=== PATIENT | male | born 1955 | race Caucasian/White ===

== ENCOUNTER 2019-08-20 10:18 | Outpatient (CLI) | payer OTHER, SELFPAY ==
--- NOTE | 2019-08-20 | US_ITS ---
WS: [id number] RIGHT LOWER EXTREMITY VENOUS ULTRASOUND EXAMINATION CLINICAL INFORMATION: RIGHT THIGH PAIN COMPARISON: May 22, 2018 FINDINGS: Persistent subtotal thrombus seen in the peroneal trunk. Remainder of the right lower extremity vesse ls are patent. Right common femoral vein, femoral vein, and popliteal veins are patent. Posterior tibial vein is pat ent. US/ROR venous duplex LE RT IMPRESSION: Persistent subtotal thrombus seen in the peroneal trunk.
== END 2019-08-20 10:19 | disposition home or self-care (01) ==
LOC: RADOUTREAD 12:58
PROVIDERS: Family Provider Family Medicine; Visit Provider Family Medicine
DX: Z76.89 Persons encountering health services in other specified circumstances (principal)

== ENCOUNTER 2019-09-24 06:00 | Outpatient (RCR) | payer OTHER, SELFPAY | END 2019-10-22 23:59 | disposition home or self-care (01) | LOC: SPT 06:00 | PROVIDERS: Family Provider Family Medicine; PCP Family Medicine; Referring Provider Orthopaedic Surgery; Visit Provider Orthopaedic Surgery | DX: M25.551 Pain in right hip (principal) | CPT/HCPCS: 97110; 97161 ==

== ENCOUNTER 2019-09-25 06:00 | Outpatient (RCR) | payer OTHER, SELFPAY | END 2019-10-22 23:59 | disposition home or self-care (01) | LOC: SPT 06:00 | PROVIDERS: Family Provider Family Medicine; PCP Family Medicine; Referring Provider Family Medicine; Visit Provider Family Medicine | DX: M25.551 Pain in right hip (principal) | CPT/HCPCS: 97110; 97161 ==

== ENCOUNTER 2019-09-25 12:51 | Outpatient (CLI) | payer OTHER, SELFPAY ==
--- NOTE | 2019-09-25 | XR_ITS ---
WS: [id number] HIP WITH PELVIS RIGHT TECHNIQUE: 3 views of the right hip with pelvis CLINICAL INFORMATION: RIGHT HIP PAIN COMPARISON: None. FINDINGS: Moderate degenerative arthritis right hip. Joint space narrowing. No acute fractures. Normal visualiz ed right pubic rami. XR/XR hip RT 2-3V wo/w pel* [id number] IMPRESSION: Moderate degenerative arthritis right hip. No acute fractures
== END 2019-09-25 12:52 | disposition home or self-care (01) ==
LOC: RADOUTREAD 09-26 07:45
PROVIDERS: Family Provider Family Medicine; PCP Family Medicine; Visit Provider Family Medicine
DX: Z01.89 Encounter for other specified special examinations (principal)

== ENCOUNTER 2019-09-26 09:35 | Day surgery (SDC) | payer OTHER, SELFPAY ==
--- NOTE | 2019-09-26 09:55 | ANES.PREANE2 ---
Pre-Anesthetic Assessment Pre-Anesthetic Assessment: Height/Weight: Height 1.8 m Preop Diagnosis: Colon CA screening Proposed Procedure: Operation Date: 09/26/19 11:00 Proposed Procedures p Colonoscopy(Not Applicable) - Eliezer St MD Last Intake: 20:00 Exam: Pre-Anes Outpt Exam: alert, oriented x 3, clear to auscultation bilaterally and regular rate & rhythm Airway: Submandibular: WNL Cervical ROM: WNL MP: 2 CV/HEM: CV/HEM: HTN Comments: rx'd x 10y stress test ' negative 2 blocks/2FOS without angina/TEJEDA : Comments: BPH, nocturia Metabolic: Metabolic: Hyperlipidemia Anesthetic Plan: ASA status: 2 Anesthesia: MAC PFSH Anesthesia PFSH: Social History Smoking and tobacco status: never smoked Alcohol intake: current Alcohol intake frequency: 0-2 Drinks per Day Alcohol type: wine Marital status: Current occupational status: employed History of recent travel: No Data Anesthesia Cardiac Studies: No Data to Display
[2019-09-26 10:22] VITALS: BMI 37.0
[2019-09-26 10:27] VITALS: BP 118/86; PULSE 71; RESP 18; TEMP 36.6; O2SAT 95
[2019-09-26] MEDS: sodium chloride 0.9% 1,000 ML 30 ML (10:37)
--- NOTE | 2019-09-26 11:26 | W.PM.OPSUD ---
Surgery/Procedure H&P Update DATE OF PROCEDURE: September 26, 2019 DATE H&P PERFORMED: 09/10/19 H&P UPDATE INFORMATION: I have reviewed H&P completed within last 30 days, I have examined patient prior to procedure and No changes to prior documentation PREOP DIAGNOSIS: Screening PLANNED PROCEDURE: Operation Date: 09/26/19 11:00 Proposed Procedures p Colonoscopy(Not Applicable) - Eliezer St MD
[2019-09-26 11:58] VITALS: BP 86/55; PULSE 66; RESP 16; TEMP 36.8; O2SAT 93
[2019-09-26 12:01] VITALS: BP 93/56; PULSE 63; RESP 16; O2SAT 96
--- NOTE | 2019-09-26 12:02 | ANE.PACU2 ---
 Inpatient post-anesthesia follow up: Airway intact: Yes Vital signs: Temperature 98.2 F Pulse Rate 63 Respiratory Rate 16 Blood Pressure 93/56 Pulse Oximetry 96 Oxygen Delivery Me thod Room Air Oxygen Flow Rate 2 Fraction of Inspir ed Oxygen Hydration adequate: Yes Nausea and vomiting: No Pain level: 1 Mental status: Baseline
[2019-09-26 12:07] VITALS: BP 93/56; PULSE 62; RESP 16; O2SAT 97
== END 2019-09-26 12:20 | disposition home or self-care (01) ==
PROVIDERS: Family Provider Family Medicine; PCP Family Medicine; Visit Provider Surgery
PROC: 0DJD8ZZ Inspection of Lower Intestinal Tract, Via Natural or Artificial Opening Endoscopic (ICD-10-PCS; CPT 45378; principal; 2019-09-26 11:00)
DX: Z12.11 Encounter for screening for malignant neoplasm of colon (principal); K57.30 Diverticulosis of large intestine without perforation or abscess without bleeding; K64.8 Other hemorrhoids; N40.0 Benign prostatic hyperplasia without lower urinary tract symptoms; Z86.718 Personal history of other venous thrombosis and embolism; E78.5 Hyperlipidemia, unspecified; I10 Essential (primary) hypertension; M19.90 Unspecified osteoarthritis, unspecified site; G47.30 Sleep apnea, unspecified
CPT/HCPCS: 12345; 45378; J2704; J7030

== ENCOUNTER 2019-10-23 06:00 | Outpatient (RCR) | payer OTHER, SELFPAY | END 2019-11-11 23:00 | disposition home or self-care (01) | LOC: SPT 06:00 | PROVIDERS: Family Provider Family Medicine; PCP Family Medicine; Referring Provider Orthopaedic Surgery; Visit Provider Orthopaedic Surgery | DX: M25.551 Pain in right hip (principal) | CPT/HCPCS: 97110 ==

== ENCOUNTER 2019-10-23 06:00 | Outpatient (RCR) | payer OTHER, SELFPAY | END 2019-11-21 23:59 | disposition home or self-care (01) | LOC: SPT 06:00 | PROVIDERS: Family Provider Family Medicine; PCP Family Medicine; Referring Provider Family Medicine; Visit Provider Family Medicine | DX: M25.551 Pain in right hip (principal) | CPT/HCPCS: 97035; 97110 ==

== ENCOUNTER 2019-11-22 06:00 | Outpatient (RCR) | payer OTHER, SELFPAY | END 2019-12-22 23:59 | disposition home or self-care (01) | LOC: SPT 06:00 | PROVIDERS: PCP Family Medicine; Referring Provider Family Medicine; Visit Provider Family Medicine | DX: M25.551 Pain in right hip (principal) | CPT/HCPCS: 97035; 97110 ==

== ENCOUNTER 2019-12-23 08:38 | Outpatient (CLI) | payer OTHER, SELFPAY ==
--- NOTE | 2019-12-23 08:42 | MR_ITS ---
WS: [id number] MRI RIGHT HIP with CONTRAST. COMPARISON: Hip radiograph 09/25/2019 Multiplanar, multisequence imaging is performed without contrast. Abnormal appearance involving the RIGHT hip and the adjacent soft tissues. There is increased T2 sign al in the RIGHT femoral neck and head and extending into the proximal diaphysis. Abnormal signal exte nds over length of 10 cm and involves a large portion of the femoral neck and head. Abnormal contour of the femoral head. There is flattening with loss of cartilage and loss of the normal joint space. S ome increased T2 signal involving the superior acetabulum on the RIGHT. There is increased T2 signal within the muscles and soft tissues surrounding the hip and a moderate joint effusion with mild thick ening of the joint capsule. On the T1 sequences there is abnormal marrow signal. No fracture is ident ified. Abnormal signal involving the superior femoral head osteonecrosis. No bone fragment. There is abnormal signal in the parasymphyseal portion of the RIGHT inferior pubic rami. Notified Rio Al MD at 12/23/2019 10:40 AM. MR/MR hip RT wo con* [id number] IMPRESSION: 1. Significant abnormal appearance of the bones and soft tissues of the RIGHT hip with increase fluid in the joint. Differential includes infection with oste omyelitis and septic joint. 2. Additional abnormal signal in the parasymphyseal RIGHT inferior pubic rami. 3. Patient is at risk for pathological fracture due to the extensive marrow ab normalities in the RIGHT hip. Joint aspiration and additional evaluation for po ssible metastatic disease should be considered. 4. Osteonecrosis RIGHT hip.
== END 2019-12-23 08:39 | disposition home or self-care (01) ==
LOC: RADWPI 08:40
PROVIDERS: Family Provider Family Medicine; PCP Family Medicine; Visit Provider Family Medicine
DX: M25.551 Pain in right hip (principal); M87.9 Osteonecrosis, unspecified
CPT/HCPCS: 73721

== ENCOUNTER 2020-02-20 10:20 | Outpatient (CLI) | payer OTHER, SELFPAY ==
--- NOTE | 2020-02-20 10:35 | USCV_ITS ---
Kieran Stephen Age: 64 Gender: M : 1955 Exam Date: 02/20/2020 10:49 Ordering Phys: Rio Al MD Technologist: Simone Mcgrath Exam Location: [facility] [place] Indication: CHEST PAIN BP: / HR: 54 Rhythm: Sinus Technical Quality: Fair MEASUREMENTS (Male / Female) Normal Values 2D ECHO LV Diastolic Diameter PLAX 4.9 cm 4.2 - 5.9 / 3.9 - 5.3 cm LV Systolic Diameter PLAX 3.2 cm IVS Diastolic Thickness 1.4 cm 0.6 - 1.0 / 0.6 - 0.9 cm IVS Systolic Thickness 2.0 cm LVPW Diastolic Thickness 1.4 cm 0.6 - 1.0 / 0.6 - 0.9 cm LVPW Systolic Thickness 1.9 cm LVOT Diameter 2.2 cm LV Ejection Fraction 2D Teich 62.4 % LV Ejection Fraction MOD 2C 63.4 % LV Ejection Fraction 2C AL 62.9 % LA Diameter 5.1 cm LA Width 5.5 cm LA Height 6.2 cm RA Width 4.4 cm RA Height 4.6 cm Aorta at Sinotubular Diameter 1.4 cm M-MODE LV Diastolic Diameter MM 5.1 cm 4.2 - 5.9 / 3.9 - 5.3 cm LV Systolic Diameter MM 2.6 cm LV Ejection Fraction MM Teich 79.4 % IVS Diastolic Thickness MM 1.5 cm 0.6 - 1.0 / 0.6 - 0.9 cm IVS Systolic Thickness MM 2.9 cm LVPW Diastolic Thickness MM 1.1 cm 0.6 - 1.0 / 0.6 - 0.9 cm LVPW Systolic Thickness MM 2.0 cm RV Diastolic Diameter MM 3.5 cm Aortic Annulus Diameter 4.4 cm LA Ao Ratio MM 1.2 MV E Point Septal Separation 1.2 cm DOPPLER AV Peak Velocity 100.0 cm/s LVOT Peak Velocity 81.0 cm/s AV Area Cont Eq vti 4.2 cm squared AV Area Cont Eq pk 3.2 cm squared MV Area PHT 2.4 cm squared Mitral E to A Ratio 0.8 MV E' Velocity 10.0 cm/s Mitral E to MV E' Ratio 6.8 Mitral E to LV E' Lateral Ratio 5.1 Mitral E to LV E' Septal Ratio 10.4 TR Peak Velocity 149.0 cm/s TR Peak Gradient 8.8 mmHg TV Peak E Velocity 69.0 cm/s Right Atrial Pressure 3.0 mmHg Pulmonary Artery Systolic Pressu 11.9 mmHg FINDINGS Left Ventricle Normal left ventricular size, systolic function and wall thickness, with no regional wall motion abnormalities. Left ventricular ejection fraction is estimated at 65 %. Right Ventricle Normal right ventricular size and systolic function. Right ventricular systolic pressure 11.9 mmHg. Right Atrium Right atrium not well visualized. Right atrial pressure estimated at 3 mmHg. No evidence of intracardiac shunt by agitated saline (bubble) study. Left Atrium Normal left atrial size. Mitral Valve Structurally normal mitral valve. Trace mitral valve regurgitation. Aortic Valve Structurally normal trileaflet aortic valve. No aortic valve stenosis. Trace aortic valve regurgitation. Tricuspid Valve Structurally normal tricuspid valve. Trace tricuspid valve regurgitation. Pulmonic Valve Pulmonic valve not well visualized. Trace pulmonary valve regurgitation. Pericardium No pericardial effusion. Aorta Normal size aortic root and proximal ascending aorta. CONCLUSIONS 1. Normal left ventricular size, systolic function and wall thickness, with no regional wall motion abnormalities. Left ventricular ejection fraction is estimated at 65 %. 2. Normal right ventricular size and systolic function. 3. No evidence of intracardiac shunt by agitated saline (bubble) study. 4. Trace aortic valve regurgitation. 5. No prior similar studies to compare. Chrystal Colindres MD (Electronically Signed) Final Date: 21 February 2020 15:01 S
== END 2020-02-20 10:21 | disposition home or self-care (01) ==
LOC: RAD 10:22
PROVIDERS: PCP Family Medicine; Visit Provider Family Medicine
DX: I47.2 Ventricular tachycardia (principal); R07.9 Chest pain, unspecified; I35.1 Nonrheumatic aortic (valve) insufficiency
CPT/HCPCS: C8929

== ENCOUNTER 2020-03-02 06:00 | Outpatient (RCR) | payer OTHER, SELFPAY | END 2020-03-23 23:59 | disposition home or self-care (01) | LOC: SPT 06:00 | PROVIDERS: PCP Family Medicine; Referring Provider Orthopaedic Surgery; Visit Provider Orthopaedic Surgery | DX: Z47.1 Aftercare following joint replacement surgery (principal); Z96.641 Presence of right artificial hip joint | CPT/HCPCS: 97110; 97161 ==

== ENCOUNTER 2020-03-24 06:00 | Outpatient (RCR) | payer OTHER, SELFPAY | END 2020-04-22 23:59 | disposition home or self-care (01) | LOC: SPT 06:00 | PROVIDERS: PCP Family Medicine; Referring Provider Family Medicine; Visit Provider Family Medicine | DX: H81.10 Benign paroxysmal vertigo, unspecified ear (principal) | CPT/HCPCS: 95992; 97162 ==

== ENCOUNTER 2020-03-24 06:00 | Outpatient (RCR) | payer OTHER, SELFPAY | END 2020-04-22 16:38 | disposition home or self-care (01) | LOC: SPT 06:00 | PROVIDERS: PCP Family Medicine; Referring Provider Orthopaedic Surgery; Visit Provider Orthopaedic Surgery | DX: H81.10 Benign paroxysmal vertigo, unspecified ear (principal) | CPT/HCPCS: 97110 ==

== ENCOUNTER 2021-07-02 13:50 | Outpatient (RCR) | payer MEDICARE, SELFPAY | END 2021-07-13 23:00 | disposition home or self-care (01) | LOC: SPT 13:50 | PROVIDERS: PCP Family Medicine; Referring Provider Family Medicine; Visit Provider Family Medicine | DX: S39.011D Strain of muscle, fascia and tendon of abdomen, subsequent encounter (principal); X58.XXXD Exposure to other specified factors, subsequent encounter | CPT/HCPCS: 97110; 97161 ==

== ENCOUNTER 2021-07-13 06:50 | Outpatient (CLI) | payer MEDICARE, SELFPAY ==
--- NOTE | 2021-07-13 07:15 | MR_ITS ---
WS: [id number] MRI LEFT SHOULDER NONCONTRAST TECHNIQUE: Sagittal T2, coronal T1, T2 and proton density imaging. Axial gradient PDE imaging. CLINICAL INFORMATION: LEFT SHOULDER ARTHROPATHY COMPARISON: None. FINDINGS: Moderate hypertrophic changes AC joint with mild edema. Small amount of subacromial/subdeltoid fluid. Narrowing of the subacromial space. Impingement on the distal supraspinatus. Full-thickness tear of the distal supraspinatus with edema and retraction. Tendon is retracted to the level of glenohumeral joint. Chronic thinning of the infraspinatus which appears intact. Tendinopathy in the infraspinatus distally. Normal teres minor. Normal subscapularis. Tiny biceps tendon in the distal bicipital groove. Intra-ar ticular biceps tendon is not well visualized likely chronically torn. Degenerative fraying of the gle noid labrum. Degenerative narrowing glenohumeral joint. Small subcoracoid effusion. MR/MR shoulder LT wo con* [id number] IMPRESSION: 1. High-grade complete tear of the supraspinatus with retraction to the level of glenohumeral joint. 2. Chronic thinning with tendinopathy in the distal supraspinatus. 3. Intra-articular biceps tendon not well visualized likely chronically torn. 4. Tiny biceps tendon in the mid to distal bicipital groove. 5. Degenerative fraying of the glenoid labrum. 6. Moderate to advanced degenerative arthritis AC joint with downsloping of th e acromium and narrowing of the subacromial space.
== END 2021-07-13 06:51 | disposition home or self-care (01) ==
LOC: RADSHAW 06:55
PROVIDERS: PCP Family Medicine; Visit Provider Family Medicine
DX: M75.122 Complete rotator cuff tear or rupture of left shoulder, not specified as traumatic (principal); M19.012 Primary osteoarthritis, left shoulder
CPT/HCPCS: 73221

== ENCOUNTER 2021-09-30 06:00 | Outpatient (RCR) | payer MEDICARE, SELFPAY | END 2021-10-01 23:59 | disposition home or self-care (01) | LOC: SPT 06:00 | PROVIDERS: PCP Family Medicine; Referring Provider Family Medicine; Visit Provider Family Medicine | DX: R42 Dizziness and giddiness (principal) | CPT/HCPCS: 95992; 97161 ==

== ENCOUNTER 2021-10-15 07:51 | Outpatient (CLI) | payer MEDICARE, SELFPAY ==
--- NOTE | 2021-10-15 07:57 | MR_ITS ---
WS: [id number] MRI RIGHT SHOULDER HISTORY: COMPLETE TEAR OF R ROTATOR CUFF, shoulder pain for 3 to 4 years. Decreased range of motion. COMPARISON: Radiograph 05/31/2021 TECHNIQUE: Multiplanar sequences of the shoulder joint are submitted. Moderate AC joint narrowing. There is fluid along the AC ligament. Hypertrophic and soft tissue hyper trophy at the AC joint with a partial tear at the AC ligament. Moderate subacromial and subdeltoid bu rsal fluid. No os acromion. Small caliber biceps tendon in the bicipital groove. Suspect there is pro bably a split tear in the bicipital groove. Mild narrowing of the glenohumeral joint. Full-thickness tear involving the distal supraspinatus tendon. Distal to the tear there is increased signal within the remaining tendons. Proximal to the tear there is increased signal along the expecte d course of the tendon. Tendon is retracted to near the glenohumeral joint. Surfaces of the retracted tendon are frayed. Moderate atrophy of the supraspinatus muscle. Subscapularis tendon is intact. Abn ormal infraspinatus tendon. There is marked thickening and variable signal intensity measuring 3.5 x 1.3 cm involving the infraspinatus tendon. Suspect this is a partial tear with retraction of the tend on. The entire tendon is not torn. Signal abnormality within the infraspinatus muscle may be hemorrha ge or tendinopathy extending into the body of the infraspinatus muscle along the tendon. Infraspinatu s tendon is not retracted. Increase fluid in the joint space and axillary pouch. Small subchondral cystic changes involving the posterior glenoid. Intrasubstance degeneration throughout the labrum. MR/MR shoulder RT wo con* [id number] IMPRESSION: 1. Moderate AC joint arthritis with partial tear of the AC ligament. 2. Full-thickness distal tear of the supraspinatus tendon. Tendon is retracted to the medial humeral head with marked fraying and thickening of the distal to rn tendon. 3. Moderate atrophy of the supraspinatus muscle. 4. Abnormal infraspinatus tendon. At least partial tear with retraction. There may be some hemorrhage and tendinopathy extending along the tendon into the mu scle body. 5. Subchondral cystic changes involving the posterior glenoid.
== END 2021-10-15 07:52 | disposition home or self-care (01) ==
LOC: RAD 07:52
PROVIDERS: PCP Family Medicine; Visit Provider Orthopaedic Surgery
DX: M75.121 Complete rotator cuff tear or rupture of right shoulder, not specified as traumatic (principal); M75.101 Unspecified rotator cuff tear or rupture of right shoulder, not specified as traumatic; M62.511 Muscle wasting and atrophy, not elsewhere classified, right shoulder
CPT/HCPCS: 73221

== ENCOUNTER 2021-10-22 06:00 | Outpatient (RCR) | payer MEDICARE, SELFPAY | END 2021-11-05 23:59 | disposition home or self-care (01) | LOC: SPT 06:00 | PROVIDERS: PCP Family Medicine; Referring Provider Family Medicine; Visit Provider Family Medicine | DX: R42 Dizziness and giddiness (principal) | CPT/HCPCS: 95992; 97162 ==

== ENCOUNTER 2021-11-03 14:39 | Outpatient (CLI) | payer MEDICARE, SELFPAY ==
--- NOTE | 2021-11-03 14:49 | CT_ITS ---
WS: [id number] CT RIGHT SHOULDER NONCONTRAST. HISTORY: RIGHT SHOULDER PAIN, injury 4 days ago. Technique: All CT scans at [facility] use at least one of these dose optimization techniques: automated exposure control; mA and/or kV adjustment per patient size (includes targeted exams where dose is matched to clinical indication); or iterative reconstruction. DLP: 934.24 mGy.cm COMPARISON: Radiograph 11/01/2021. No definite fractures are identified. There are hypertrophic osteophytes from the humeral head. Mild narrowing of the glenohumeral joint. There are very tiny calcific densities in the distal rotator cuf f. Small osseous density just superior to the glenoid. The area of concern on the radiograph correspo nds to an osteophyte. Subchondral cyst in the posterior lateral humeral head. Mild narrowing of the A C joint. There are small additional osteophytes versus remote avulsion fractures from the lateral acr omion. Several well-corticated. Clavicle is intact. Remote healed rib fracture involving the second a nd third ribs. The adjacent RIGHT lung is clear. Atrophy and fatty replacement of the subscapularis muscle. Atrophy of the supraspinatus muscle. CT/CT shoulder RT wo con* [id number] IMPRESSION: 1. No acute fractures are identified. There are small avulsion fractures which are probably chronic adjacent to the glenoid and acromion. 2. Joint space narrowing at the glenoid and AC joint with osteophytic ridging. 3. Mild calcific tendinitis supraspinatus tendon. 4. Atrophy and fatty replacement of the subscapularis muscle atrophy supraspin atus muscle.
== END 2021-11-03 14:40 | disposition home or self-care (01) ==
LOC: RAD 14:44
PROVIDERS: PCP Family Medicine; Visit Provider Family Medicine
DX: M25.511 Pain in right shoulder (principal)
CPT/HCPCS: 73200

== ENCOUNTER 2021-11-22 10:53 | Outpatient (CLI) | payer MEDICARE, SELFPAY ==
--- NOTE | 2021-11-22 11:03 | USCV_ITS ---
Stephen Alcaraz Age: 66 Gender: M : 1955 Exam Date: 11/22/2021 11:20 Ordering Phys: Rio Al MD Technologist: WANG Exam Location: [facility] – [place] Indication: Aortic regurgitation BP: 99 / 60 HR: 52 Rhythm: Sinus Technical Quality: Suboptimal MEASUREMENTS (Male / Female) Normal Values 2D ECHO LV Diastolic Diameter PLAX 4.8 cm 4.2 - 5.9 / 3.9 - 5.3 cm LV Systolic Diameter PLAX 3.5 cm IVS Diastolic Thickness 1.3 cm 0.6 - 1.0 / 0.6 - 0.9 cm IVS Systolic Thickness 1.9 cm LVPW Diastolic Thickness 1.5 cm 0.6 - 1.0 / 0.6 - 0.9 cm LVPW Systolic Thickness 1.8 cm RV Chamber Size 2.1 cm LVOT Diameter 2.1 cm LV Ejection Fraction 2D Teich 51.3 % LV Ejection Fraction MOD 2C 40.7 % LV Ejection Fraction 2C AL 37.2 % LA Diameter 3.8 cm LA Width 3.7 cm LA Height 4.3 cm RA Width 3.1 cm RA Height 4.4 cm Aorta at Sinotubular Diameter 2.9 cm IVC Diameter 1.1 cm M-MODE Aortic Annulus Diameter 3.5 cm LA Ao Ratio MM 1.3 MV E Point Septal Separation 1.3 cm DOPPLER AV Peak Velocity 74.0 cm/s LVOT Peak Velocity 67.0 cm/s AV Area Cont Eq vti 3.5 cm squared AV Area Cont Eq pk 3.0 cm squared MV Area PHT 5.0 cm squared Mitral E to A Ratio 1.0 MV E' Velocity 33.0 cm/s Mitral E to MV E' Ratio 10.9 Mitral E to LV E' Lateral Ratio 8.9 Mitral E to LV E' Septal Ratio 14.3 TR Peak Velocity 290.0 cm/s TR Peak Gradient 33.6 mmHg Right Atrial Pressure 3.0 mmHg Pulmonary Artery Systolic Pressu 36.6 mmHg PV Peak Velocity 97.0 cm/s RV Acceleration Time 0.1 s RV Ejection Time 0.3 s RV AcT/ET 0.3 FINDINGS Left Ventricle Technically limited quality echocardiogram because of poor ultrasonic windows. Normal left ventricular size. Grossly LV systolic function is normal. Regional wall motion cannot be assessed because of poor visualization. Diastolic function is abnormal Right Ventricle The right ventricle is normal in size and function. Right Atrium The right atrium is normal in size. Left Atrium The left atrium is normal in size. Mitral Valve Structurally normal mitral valve without significant stenosis or prolapse. There is mild mitral regurgitation. Aortic Valve Structurally normal aortic valve without significant sclerosis or stenosis. There is mild aortic regurgitation. Tricuspid Valve Structurally normal tricuspid valve without significant stenosis or regurgitation. Pulmonary artery systolic pressure is normal. Pulmonic Valve Structurally normal pulmonic valve without significant stenosis. There is no pulmonic regurgitation. Pericardium Normal pericardium without effusion. Aorta Mildly dilated ascending aorta CONCLUSIONS Technically limited quality echocardiogram because of poor ultrasonic windows. Grossly LV systolic function is normal. Regional wall motion cannot be assessed because of poor visualization. Diastolic function is abnormal. Mild mitral regurgitation. Mild aortic regurgitation. Mildly dilated ascending aorta Compared to prior echocardiogram from 2019, ascending aorta is mildly dilated Noah Abebe MD (Electronically Signed) Final Date: 04 Dec 2021 19:11 S
== END 2021-11-22 10:54 | disposition home or self-care (01) ==
PROVIDERS: PCP Family Medicine; Visit Provider Family Medicine
DX: I35.1 Nonrheumatic aortic (valve) insufficiency (principal)
CPT/HCPCS: 93306

== ENCOUNTER 2021-11-29 10:05 | Outpatient (CLI) | payer MEDICARE, SELFPAY ==
--- NOTE | 2021-11-29 10:14 | MR_ITS ---
WS: [id number] MRI HEAD WITH CONTRAST TECHNIQUE: Sagittal T1, T2 axial, T2 axial FLAIR, axial susceptibility weighted imaging, axial diffus ion weighted images, and coronal T2 images were obtained. Pre and post-T1 axial and post T1 coronal i mages. ADC and FSPGR images. CLINICAL INFORMATION: MEMORY CHANGE COMPARISON: CT 2011 FINDINGS: No evidence of restricted diffusion to suggest acute ischemia. Ventricular system and basal cisterns are patent. Mild small vessel changes. Mild parenchymal volume loss. Normal posterior fossa. Normal v ascular flow voids at the skull base. No extra-axial fluid collections. No evidence of mass or mass e ffect. Mild mucosal thickening in the paranasal sinuses. Mastoid air cells well aerated. Tiny chronic lacunar infarct LEFT caudate. No hemosiderin on susceptibly weighted images. Normal optic chiasm and pituitary infundibulum. Mild s ymmetric atrophy temporal lobes and hippocampal formations. No abnormal gadolinium enhancement. Normal visualized dural venous sinuses. MR/MR head wo/w con [id number] IMPRESSION: 1. No evidence of restricted diffusion to suggest acute ischemia. 2. Mild small vessel changes with mild parenchymal volume loss. 3. Tiny chronic lacunar infarct LEFT caudate. 4. Mild mucosal thickening in the paranasal sinuses. Mastoid air cells are wel l aerated. 5. No hemosiderin on susceptibly weighted images. 6. Mild symmetric atrophy temporal lobes and hippocampal formations. 7. No abnormal gadolinium enhancement.
[2021-11-29] MEDS: gadobenate dimeglumine 20 mL vial IV (11:54)
== END 2021-11-29 10:06 | disposition home or self-care (01) ==
LOC: RAD 10:06
PROVIDERS: PCP Family Medicine; Visit Provider Family Medicine
DX: R41.3 Other amnesia (principal); I35.1 Nonrheumatic aortic (valve) insufficiency
CPT/HCPCS: 70553

== ENCOUNTER 2022-01-03 06:00 | Outpatient (RCR) | payer MEDICARE, SELFPAY | END 2022-01-20 23:59 | disposition home or self-care (01) | LOC: SPT 06:00 | PROVIDERS: PCP Family Medicine; Referring Provider Orthopaedic Surgery; Visit Provider Orthopaedic Surgery | DX: R42 Dizziness and giddiness (principal) | CPT/HCPCS: 97110; 97161 ==

== ENCOUNTER 2022-01-21 | Outpatient (RCR) | payer MEDICARE, SELFPAY | END 2022-02-20 23:59 | disposition home or self-care (01) | LOC: SPT | PROVIDERS: PCP Family Medicine; Referring Provider Family Medicine; Visit Provider Family Medicine | DX: M75.121 Complete rotator cuff tear or rupture of right shoulder, not specified as traumatic (principal); M75.42 Impingement syndrome of left shoulder | CPT/HCPCS: 95992; 97161 ==

== ENCOUNTER 2022-01-21 06:00 | Outpatient (RCR) | payer MEDICARE, SELFPAY | END 2022-02-20 23:59 | disposition home or self-care (01) | LOC: SPT 06:00 | PROVIDERS: PCP Family Medicine; Referring Provider Orthopaedic Surgery; Visit Provider Orthopaedic Surgery | DX: M75.42 Impingement syndrome of left shoulder (principal); R53.1 Weakness | CPT/HCPCS: 97110 ==

== ENCOUNTER 2022-02-21 06:00 | Outpatient (RCR) | payer MEDICARE, SELFPAY | END 2022-03-23 23:59 | disposition home or self-care (01) | LOC: SPT 06:00 | PROVIDERS: PCP Family Medicine; Referring Provider Orthopaedic Surgery; Visit Provider Orthopaedic Surgery | DX: M75.121 Complete rotator cuff tear or rupture of right shoulder, not specified as traumatic (principal); M75.42 Impingement syndrome of left shoulder | CPT/HCPCS: 97110 ==

== ENCOUNTER 2022-02-28 10:15 | Outpatient (CLI) | payer MEDICARE, SELFPAY | END 2022-02-28 10:16 | disposition home or self-care (01) | LOC: SLEEP 03-01 14:11 | PROVIDERS: PCP Family Medicine; Visit Provider Family Medicine | DX: G47.33 Obstructive sleep apnea (adult) (pediatric) (principal) | CPT/HCPCS: G0399 ==

== ENCOUNTER 2022-03-24 06:00 | Outpatient (RCR) | payer MEDICARE, SELFPAY | END 2022-04-22 23:59 | disposition home or self-care (01) | LOC: SPT 06:00 | PROVIDERS: PCP Family Medicine; Visit Provider Orthopaedic Surgery | DX: M75.42 Impingement syndrome of left shoulder (principal); M75.121 Complete rotator cuff tear or rupture of right shoulder, not specified as traumatic | CPT/HCPCS: 97110 ==

== ENCOUNTER 2022-04-11 06:00 | Outpatient (RCR) | payer MEDICARE, SELFPAY | END 2022-04-22 23:59 | disposition home or self-care (01) | LOC: SPT 06:00 | PROVIDERS: PCP Family Medicine; Visit Provider Orthopaedic Surgery | DX: M25.562 Pain in left knee (principal); M75.121 Complete rotator cuff tear or rupture of right shoulder, not specified as traumatic | CPT/HCPCS: 97110; 97161 ==

== ENCOUNTER 2022-04-23 06:00 | Outpatient (RCR) | payer MEDICARE, SELFPAY | END 2022-05-23 23:59 | disposition home or self-care (01) | LOC: SPT 06:00 | PROVIDERS: PCP Family Medicine; Visit Provider Orthopaedic Surgery | DX: M75.121 Complete rotator cuff tear or rupture of right shoulder, not specified as traumatic (principal); M75.42 Impingement syndrome of left shoulder | CPT/HCPCS: 97110 ==

== ENCOUNTER 2022-04-23 06:00 | Outpatient (RCR) | payer MEDICARE, SELFPAY | END 2022-05-23 23:59 | disposition home or self-care (01) | LOC: SPT 06:00 | PROVIDERS: PCP Family Medicine; Visit Provider Orthopaedic Surgery | DX: M75.42 Impingement syndrome of left shoulder (principal); M75.121 Complete rotator cuff tear or rupture of right shoulder, not specified as traumatic | CPT/HCPCS: 97110 ==

== ENCOUNTER 2022-08-18 06:55 | Outpatient (CLI) | payer MEDICARE, SELFPAY ==
--- NOTE | 2022-08-18 | USCV_ITS ---
Stephen Alcaraz Age: 67 Gender: M : 1955 Exam Date: 08/18/2022 07:38 Ordering Phys: Rio Al MD Technologist: Valdez Rios Exam Location: [facility] – [place] Indication: Dilated ascending aorta BP: 135 / 71 HR: 54 Rhythm: Other Technical Quality: Adequate MEASUREMENTS (Male / Female) Normal Values 2D ECHO LV Diastolic Diameter PLAX 6.0 cm 4.2 - 5.9 / 3.9 - 5.3 cm LV Systolic Diameter PLAX 3.5 cm IVS Diastolic Thickness 1.2 cm 0.6 - 1.0 / 0.6 - 0.9 cm IVS Systolic Thickness 1.5 cm LVPW Diastolic Thickness 1.7 cm 0.6 - 1.0 / 0.6 - 0.9 cm LVPW Systolic Thickness 2.2 cm LVOT Diameter 2.6 cm LV Ejection Fraction 2D Teich 71.2 % LV Ejection Fraction MOD 2C 63.9 % LV Ejection Fraction 2C AL 68.5 % LA Diameter 4.7 cm LA Width 4.0 cm LA Height 5.4 cm RA Width 4.3 cm RA Height 5.0 cm Aorta at Sinotubular Diameter 3.0 cm IVC Diameter 1.5 cm M-MODE Aortic Annulus Diameter 3.6 cm LA Ao Ratio MM 1.4 MV E Point Septal Separation 1.1 cm DOPPLER AV Peak Velocity 134.3 cm/s LVOT Peak Velocity 88.0 cm/s AV Area Cont Eq vti 3.5 cm squared AV Area Cont Eq pk 3.5 cm squared MV Peak Velocity 62.0 cm/s MV Area PHT 3.9 cm squared Mitral E to A Ratio 0.7 MV E' Velocity 28.5 cm/s Mitral E to MV E' Ratio 6.5 Mitral E to LV E' Lateral Ratio 5.5 Mitral E to LV E' Septal Ratio 8.0 TR Peak Velocity 331.3 cm/s TR Peak Gradient 43.9 mmHg TR Mean Velocity 253.8 cm/s TR Mean Gradient 27.2 mmHg TR Velocity Time Integral 91.5 cm Right Atrial Pressure 3.0 mmHg Pulmonary Artery Systolic Pressu 46.9 mmHg PV Peak Velocity 93.7 cm/s RV Acceleration Time 0.1 s RV Ejection Time 0.3 s RV AcT/ET 0.3 FINDINGS Left Ventricle Normal left ventricular size, systolic function and wall thickness, with no regional wall motion abnormalities. Left ventricular ejection fraction is estimated at 60 %. Grade I diastolic dysfunction (abnormal relaxation filling pattern), normal to mildly elevated filling pressures. Right Ventricle Normal right ventricular size and systolic function. Right Atrium Normal right atrial size. Left Atrium Normal left atrial size. Mitral Valve Structurally normal mitral valve. No mitral valve stenosis. No mitral valve regurgitation. Aortic Valve Structurally normal trileaflet aortic valve. No aortic valve stenosis. Mild aortic valve regurgitation. Tricuspid Valve Structurally normal tricuspid valve. Pulmonic Valve Structurally normal pulmonic valve. No pulmonary valve stenosis. No pulmonary valve regurgitation. Pericardium No pericardial effusion. Aorta Normal size aortic root and mildly dilated proximal ascending aorta measured at 42 mm melvina-posterioly. IVC Normal IVC dimension with >50% respiratory change of the inferior vena cava. CONCLUSIONS 1. Normal left ventricular size, systolic function and wall thickness, with no regional wall motion abnormalities. Left ventricular ejection fraction is estimated at 60 %. Grade I diastolic dysfunction (abnormal relaxation filling pattern), normal to mildly elevated filling pressures. 2. Mildly dilated proximal ascending aorta measured at 42 mm melvina-posterioly. 3. Mild aortic valve regurgitation. 4. When compared to study dated 11/22/2021, there may not have been any significant change. Chrystal Colindres MD (Electronically Signed) Final Date: 18 August 2022 14:30 S
== END 2022-08-18 06:56 | disposition home or self-care (01) ==
PROVIDERS: PCP Family Medicine; Visit Provider Family Medicine
DX: I77.810 Thoracic aortic ectasia (principal); I35.1 Nonrheumatic aortic (valve) insufficiency
CPT/HCPCS: 93306

== ENCOUNTER 2022-09-02 06:00 | Outpatient (RCR) | payer MEDICARE, SELFPAY | END 2022-09-20 23:59 | disposition home or self-care (01) | LOC: SPT 06:00 | PROVIDERS: PCP Family Medicine; Visit Provider Family Medicine | DX: M79.604 Pain in right leg (principal); M79.89 Other specified soft tissue disorders | CPT/HCPCS: 97110; 97161 ==

== ENCOUNTER 2022-09-21 06:00 | Outpatient (RCR) | payer MEDICARE, SELFPAY | END 2022-10-21 23:59 | disposition home or self-care (01) | LOC: SPT 06:00 | PROVIDERS: PCP Family Medicine; Visit Provider Family Medicine | DX: M79.604 Pain in right leg (principal); M79.89 Other specified soft tissue disorders | CPT/HCPCS: 97110 ==

== ENCOUNTER 2022-10-22 06:00 | Outpatient (RCR) | payer MEDICARE, SELFPAY | END 2022-11-01 23:59 | disposition home or self-care (01) | LOC: SPT 06:00 | PROVIDERS: PCP Family Medicine; Visit Provider Family Medicine | DX: M79.604 Pain in right leg (principal); R22.41 Localized swelling, mass and lump, right lower limb | CPT/HCPCS: 97110 ==

== ENCOUNTER 2023-09-18 14:07 | Outpatient (RCR) | payer MEDICARE, SELFPAY | END 2023-09-21 23:59 | disposition home or self-care (01) | LOC: SPT 14:07 | PROVIDERS: Visit Provider Family Medicine | DX: M71.552 Other bursitis, not elsewhere classified, left hip (principal) | CPT/HCPCS: 97110; 97161 ==

== ENCOUNTER 2023-09-22 06:00 | Outpatient (RCR) | payer MEDICARE, SELFPAY | END 2023-10-22 23:59 | disposition home or self-care (01) | LOC: SPT 06:00 | PROVIDERS: Visit Provider Family Medicine | DX: M71.552 Other bursitis, not elsewhere classified, left hip (principal) | CPT/HCPCS: 97110; 97140 ==

== ENCOUNTER → 2023-10-12 13:20 | Outpatient (BNVA) | payer MEDICARE, SELFPAY | PROVIDERS: Visit Provider Nurse Practitioner Family | DX: L57.0 Actinic keratosis (principal); D22.5 Melanocytic nevi of trunk; L82.1 Other seborrheic keratosis; L81.4 Other melanin hyperpigmentation; Z80.8 Family history of malignant neoplasm of other organs or systems; L57.8 Other skin changes due to chronic exposure to nonionizing radiation; D17.21 Benign lipomatous neoplasm of skin and subcutaneous tissue of right arm; C43.72 Malignant melanoma of left lower limb, including hip | CPT/HCPCS: 11102; 17000; 99213 ==

== ENCOUNTER 2023-10-23 06:00 | Outpatient (RCR) | payer MEDICARE, SELFPAY | END 2023-11-09 23:59 | disposition home or self-care (01) | LOC: SPT 06:00 | PROVIDERS: Visit Provider Family Medicine | DX: M71.552 Other bursitis, not elsewhere classified, left hip (principal) | CPT/HCPCS: 97110; 97140 ==

== ENCOUNTER → 2023-11-06 10:12 | Outpatient (BNVA) | payer MEDICARE, SELFPAY | PROVIDERS: PCP Family Medicine; Visit Provider Surgery | DX: C43.9 Malignant melanoma of skin, unspecified (principal) | CPT/HCPCS: 99204 ==

== ENCOUNTER 2023-11-14 07:25 | Day surgery (SDC) | payer MEDICARE, SELFPAY ==
[2023-11-14] VITALS (10 sets, daily range): BP systolic 123–158; BP diastolic 69–81; PULSE 41–63; RESP 15–20; TEMP 36.4–36.8; O2SAT 92–96
--- NOTE | 2023-11-14 11:38 | W.PM.OPSUD ---
Surgery/Procedure H&P Update DATE OF PROCEDURE: November 14, 2023 DATE H&P PERFORMED: 11/06/23 H&P UPDATE INFORMATION: I have reviewed H&P completed within last 30 days, I have examined patient prior to procedure and No changes to prior documentation PLANNED PROCEDURE: Operation Date: 11/14/23 11:10 Proposed Procedures p Excision Mass/Lesion/Cyst Lower Extremit(Left) - DO vani Spears Sentinal Lymph Node Biopsy/ inguinal sentinel lymph node biopsy(Left) - Sony Velasquez DO
[2023-11-14] MEDS: sodium chloride 0.9% 1,000 ML 30 ML IV (11:39)
--- NOTE | 2023-11-14 12:13 | ANES.PREANE2 ---
Pre-Anesthetic Assessment Height/Weight: Height 1.8 m Weight 2.58 kg Temp Pulse Resp BP Pulse Ox O2 Del Method 97.8 F 48 L 18 123/78 94 Room Air 11/14/23 07:36 11/14/23 07:36 11/14/23 07:36 11/14/23 07:36 11/14/23 07:36 11/14/23 07:55 Operation Date: 11/14/23 11:10 Proposed Procedures p Excision Mass/Lesion/Cyst Lower Extremit(Left) - DO vani Spears Sentinal Lymph Node Biopsy/ inguinal sentinel lymph node biopsy(Left) - Sony Velasquez DO Familial anesthetic complications: none Was Beta Sharan taken within 24 hours: N/A Was Clonidine taken within 24 hours: N/A Last intake: Intake Last Liquid Date 11/13/23 Last Liquid Time 21:00 Last Solid Date 11/13/23 Last Solid Time 20:00 Social Alcohol (1-2 glasses wine night) and No tobacco Exam alert, oriented x 3, clear to auscultation bilaterally and regular rate & rhythm Airway Mallampati: Class II Dentition: partials (permanent) and full CV/HEM Deep Vein Thrombosis and Hypertension Metabolic Hyperlipidemia Anesthetic Plan ASA status: 2 Anesthesia: General Risk of > 500 ml blood loss (7ml/kg in children): No Medications/Allergies Home Medications Medication Instructions Recorded Confirmed Last Taken Type apixaban 5 mg tablet (Eliquis) 5 mg PO BID 09/09/19 11/13/23 11/11/23 History sildenafil 100 mg tablet (Viagra) 100 mg PO DAILY PRN Sexual Activity 09/09/19 11/13/23 11/11/23 History losartan 50 mg tablet 50 mg PO DAILY 07/13/20 11/13/23 11/13/23 History rosuvastatin 20 mg tablet 20 mg PO DAILY 11/06/23 11/13/23 11/13/23 History Allergies Allergy/AdvReac Type Severity Reaction Status Date / Time Penicillins Allergy ALGY-Hives Verified 11/14/23 07:32 atorvastatin [From Lipitor] AdvReac ADR-Muscle Verified 11/14/23 07:32 Pain Current Medications Generic Name Dose Route Start Last Admin Trade Name Freq PRN Reason Stop Dose Admin Sodium Chloride 1,000 mls @ 30 mls/hr 11/14/23 07:30 11/14/23 11:39 Sodium Chloride 0.9% IV 11/15/23 07:29 30 mls/hr .Q24H MELANY Administration PFSH Anesthesia Medical History Hyperlipidemia BPH (benign prostatic hyperplasia) DVT (deep venous thrombosis) Sleep apnea Osteoarthrosis Hypertension Erectile dysfunction Surgical History Status post colonoscopy 09/26/19: sigmoid diverticulosis History of knee replacement Family History Denies family history of Anesthesia complication Bleeding disorder Social History Smoking and tobacco/nicotine status: never used tobacco/nicotine Alcohol intake: current Alcohol intake frequency: 0-2 Drinks per Day Alcohol type: wine Substance/Drug Use: never Marital status: Current occupational status: employed Data Anesthesia Cardiac Studies: Echocardiogram 08/18/22 Holter Monitor 06/02/21
[2023-11-14] MEDS: vancomycin 1,500 MG/300 ML PIGGYBACK 200 MG IV (12:45)
[2023-11-14] MEDS: lidocaine-epi 2% PF 1:200,000 20 mL SDV XX (14:28)
--- NOTE | 2023-11-14 14:31 | P.OP_ITS ---
Operative Report Date of procedure: November 14, 2023 Pre-op diagnosis: Malignant melanoma left leg Post-op diagnosis: same Procedure done: Wide local excision of malignant melanoma left leg (14833) Creation of superior fasciocutaneous flap (26563) Creation of inferior fasciocutaneous flap (96727) [place] lymph node biopsy Implants: None Specimens removed/disposition: Wide local excision of malignant melanoma [place] lymph node biopsy left popliteal fossa Surgeon: Sony Velasquez DO Anesthesia: General and Local Estimated blood loss (mL): 5 Complications: None apparent Brief History: This very pleasant 68-year-old gentleman who was found to have malignant melanoma, superficial spreading type on his left ankle. He has a strong family history of it as well. Wide local excision with sentinel lymph node biopsy was indicated. The risk and benefits were explained and documented. Procedure: Preoperatively, radiology performed lymph node mapping and a sentinel lymph node was identified in the left popliteal fossa. Technetium 99 was injected. Patient was brought into the operating room and placed on the OR table in the prone position after being intubated on the gurney by the department of anesthesia. The left lower extremity was inspected prepped and draped in usual sterile fashion. A timeout was performed. All present were in agreement. A Lc counter was used to identify the radiotracer and a strong signal was identified exactly at the area premarked by radiology in the popliteal fossa. Count was 25 and the count at the lesion site was 210. The area over the site in the popliteal fossa was localized with 2% lidocaine with epinephrine. A 2 cm transverse incision was made in the popliteal fossa with a 15 blade scalpel. The dermis was cut with electrocautery and cut mode. Careful meticulous dissection was performed with hemostats and guided by the [place] counter. A firm but fatty lymph node was identified measuring approximately 0.9 cm in diameter. The hilum of this lymph node was clipped and then excised with electrocautery. Specimen was passed off. hemostasis was achieved with electrocautery. There was minimal dissection done in this area. Dermis approximated with 3-0 Vicryl in an interrupted fashion. Skin was closed with 4- 0 Monocryl in a running subcuticular fashion. Dermabond was applied. Attention was then brought to the wide local excision. There was a shave biopsy site on the left medial leg just proximal to the ankle that measures 1.3 cm in diameter. An elliptical excision was drawn over this transversely out to 1.1 cm proximally and distally. An elliptical excision measuring 3.2 cm x 7 cm was performed with a 10 blade scalpel. Dermis was covered with electrocautery and cut mode. Electrocautery was then used to cut the subcutaneous tissue and passed off the specimen. A stitch was placed marking anterior. There was not much laxity in the tissue here. Fasciocutaneous flaps need to be created both cephalad and caudad in order to bring the tissues together. Electrocautery was then used to make a cephalad fasciocutaneous flap measuring 1 cm in thickness approximately 5 cm cephalad. A fasciocutaneous flap was then created inferiorly in a similar fashion, going 3 cm caudad. Still the skin came together under significant tissue. 2-0 nylon sutures were used to try approximate the tissue and in the center of the excision in a vertical mattress fashion. It did not quite come together. I brought them together as close as possible and held that for 10 minutes to allow tissue creep. I then began bleeding umbilical incision at the edge using 3-0 nylon in an interrupted vertic al mattress fashion. By the time I got to the center of the excision, the tissue had come together. The center of the excision was then closed with 2-0 nylon in an interrupted vertical mattress fashion. This was a complex closure that came together nicely and the end. Sterile bandage was applied. Patient tolerated procedure well.
--- NOTE | 2023-11-14 16:55 | ANE.PACU2 ---
Inpatient post-anesthesia follow up: Airway intact: Yes Vital signs: Temperature 97.5 F Pulse Rate 41 Respiratory Rate 15 Blood Pressure 141/69 Pulse Oximetry 94 Oxygen Delivery Me thod Room Air Oxygen Flow Rate Fraction of Inspir ed Oxygen Hydration adequate: Yes Nausea and vomiting: No Pain level: 1 Mental status: Baseline
== END 2023-11-14 16:55 | disposition home or self-care (01) ==
PROVIDERS: PCP Family Medicine; Visit Provider Surgery
PROC: (CPT 11604; principal; 2023-11-14 11:10)
PROC: (CPT 11604; 2023-11-14 11:10)
DX: C43.72 Malignant melanoma of left lower limb, including hip (principal); I10 Essential (primary) hypertension; Z86.718 Personal history of other venous thrombosis and embolism; E78.5 Hyperlipidemia, unspecified; N40.0 Benign prostatic hyperplasia without lower urinary tract symptoms; G47.30 Sleep apnea, unspecified; M19.90 Unspecified osteoarthritis, unspecified site
CPT/HCPCS: 11604; 15570 ×2; 78195; 88304; 88307; 88342; A9541; J1100; J2405; J2704; J3010; J3370; J3490; J7030

== ENCOUNTER → 2023-12-04 08:22 | Outpatient (BNVA) | payer MEDICARE, SELFPAY | PROVIDERS: PCP Family Medicine; Visit Provider Surgery | DX: Z98.890 Other specified postprocedural states (principal); Z85.820 Personal history of malignant melanoma of skin | CPT/HCPCS: 99024 ==

== ENCOUNTER → 2023-12-11 08:29 | Outpatient (BNVA) | payer MEDICARE, SELFPAY | PROVIDERS: PCP Family Medicine; Visit Provider Surgery | DX: Z98.890 Other specified postprocedural states (principal); Z85.820 Personal history of malignant melanoma of skin | CPT/HCPCS: 99024 ==

== ENCOUNTER 2023-12-14 14:18 | Oncology outpatient (recurring) (ONCR) | payer MEDICARE, SELFPAY ==
[2023-12-14 15:37] LABS: Basophils % 0.4 %; Eosinophils # 0.1 10^3/uL (0.0-0.8); Eosinophils % 1.1 %; Hematocrit 42.1 % (37-53); Lymphocytes % 12.7 %; Mean Corpuscular HGB Conc 33.3 g/dL (30-55); Mean Corpuscular Hemoglobin 30.9 pg (27-33); Mean Corpuscular Volume 92.9 fl (82-101); Mean Platelet Volume 10.5 fL (7.4-10.4); Monocytes # 0.5 10^3/uL (0.2-0.9); Neutrophils # 6.45 10^3/uL (1.8-7.7); Neutrophils % 79.4 %; Nucleated Red Blood Cells % 0 %; Platelet Count 227 10^3/cmm (157-399); Red Blood Count 4.53 10^6/uL (3.85-5.65); Red Cell Distribution Width 13.2 % (12.1-15.1); White Blood Count 8.12 10^3/uL (3.29-11.43)
[2023-12-14 15:58] LABS: Alanine Aminotransferase 22 U/L (0-41); Albumin Level 4.3 g/dL (3.5-5.2); Alkaline Phosphatase 81 U/L (40-130); Anion Gap 15.5 (5-19); Aspartate Amino Transferase 20 U/L (0-40); Blood Urea Nitrogen 24 mg/dL (8-23); Calcium 9.4 mg/dL (8.5-10.5); Carbon Dioxide 27 mmol/L (22-29); Chloride 100 mmol/L (98-107); Globulin 2.7 g/dL (1.3-4.6); Glomerular Filtration Rate 74.3 mL/min (90-130); Glucose 94 mg/dL (65-115); Osmolality Calculated 290 mOsm/kg (285-295); Potassium 4.5 mmol/L (3.5-5.1); Sodium 138 mmol/L (136-145); Total Bilirubin 0.7 mg/dL (0.15-1.2)
== END 2023-12-22 23:59 | disposition home or self-care (01) ==
PROVIDERS: PCP Family Medicine; Visit Provider Internal Medicine Hematology & Oncology
DX: Z98.890 Other specified postprocedural states (principal); Z85.820 Personal history of malignant melanoma of skin; Z86.718 Personal history of other venous thrombosis and embolism; Z79.01 Long term (current) use of anticoagulants; I10 Essential (primary) hypertension
CPT/HCPCS: 36415; 80053; 85025; 99204

== ENCOUNTER → 2024-01-30 14:53 | Outpatient (BNVA) | payer MEDICARE, SELFPAY | PROVIDERS: PCP Family Medicine; Visit Provider Dermatology | DX: T81.31XA Disruption of external operation (surgical) wound, not elsewhere classified, initial encounter; X58.XXXA Exposure to other specified factors, initial encounter; L82.1 Other seborrheic keratosis; D18.01 Hemangioma of skin and subcutaneous tissue; L57.8 Other skin changes due to chronic exposure to nonionizing radiation; D69.2 Other nonthrombocytopenic purpura | CPT/HCPCS: 99214 ==

== ENCOUNTER 2024-02-02 06:00 | Outpatient (RCR) | payer MEDICARE, SELFPAY | END 2024-02-21 23:59 | disposition home or self-care (01) | LOC: SPT 06:00 | PROVIDERS: Visit Provider Family Medicine | DX: M76.32 Iliotibial band syndrome, left leg (principal) | CPT/HCPCS: 97110; 97161 ==

== ENCOUNTER 2024-02-22 06:00 | Outpatient (RCR) | payer MEDICARE, SELFPAY | END 2024-03-23 23:59 | disposition home or self-care (01) | LOC: SPT 06:00 | PROVIDERS: Visit Provider Family Medicine | DX: M76.32 Iliotibial band syndrome, left leg (principal) | CPT/HCPCS: 97110 ==

== ENCOUNTER 2024-03-13 10:32 | Emergency (ER) | payer MEDICARE, SELFPAY ==
--- NOTE | 2024-03-13 10:33 | XRR_ITS ---
PROCEDURE INFORMATION: Exam: XR Chest Exam date and time: 03/13/2024 11:09 AM Age: 68 years old Clinical indication: Shortness of breath; Patient HX: Tremors and weakness today while driving, PT states no SOB or difficulty breathing TECHNIQUE: Imaging protocol: Radiologic exam of the chest. Views: 1 view. COMPARISON: CR XR ribs RT mn 3V w CXR1V [id number] 05/10/2023 8:29 AM FINDINGS: Lungs: Unremarkable. No consolidation. Pleural spaces: Unremarkable. No pleural effusion. No pneumothorax. Heart/Mediastinum: Unremarkable. No cardiomegaly. Bones/joints: Unremarkable. XR/XR chest 1V portable [id number] IMPRESSION: No acute findings.
--- NOTE | 2024-03-13 10:39 | ECG_ITS ---
[facility] Test Date: 2024-03-13 Pat Name: Stephen Alcaraz Department: Room: Gender: Male Specialty Person: : 1955 Requested By: Ashley Guevara Order Number: [id number] Sal MD: Araceli Goyal M.D. Measurements Intervals [place] Rate: 71 P: 26 AR: 190 QRS: -7 QRSD: 105 T: 62 QT: 345 QTc: 376 Interpretive Statements SINUS RHYTHM INCOMPLETE RIGHT BUNDLE BRANCH BLOCK [90+ ms QRS DURATION, TERMINAL R IN V1/V2, 40+ ms S IN I/aVL/V4/V5/V6] No previous ECG available for comparison Electronically Signed On 03-14-2024 0:16:30 CDT by Araceli Goyal M.D. [id number]
[2024-03-13 10:46] VITALS: BP 144/81; PULSE 70; RESP 20; TEMP 37.1; O2SAT 96; BMI 38.7
[2024-03-13 11:26] LABS: Basophils % 0.4 %; Eosinophils # 0.1 10^3/uL (0.0-0.8); Eosinophils % 2.5 %; Hematocrit 40.3 % (37-53); Lymphocytes # 0.4 10^3/uL (0.8-4.8); Lymphocytes % 7.2 %; Mean Corpuscular HGB Conc 32.5 g/dL (30-55); Mean Corpuscular Hemoglobin 30.8 pg (27-33); Mean Corpuscular Volume 94.8 fl (82-101); Mean Platelet Volume 10.7 fL (7.4-10.4); Monocytes % 0.4 %; Neutrophils # 4.32 10^3/uL (1.8-7.7); Neutrophils % 89.3 %; Nucleated Red Blood Cells % 0 %; Platelet Count 164 10^3/cmm (157-399); Red Blood Count 4.25 10^6/uL (3.85-5.65); White Blood Count 4.84 10^3/uL (3.29-11.43)
--- NOTE | 2024-03-13 11:26 | W.ED.GENADLT ---
HPI - General Adult General: Chief complaint: General Medical Stated complaint: Shaking SOB Time Seen by Provider: 03/13/24 10:42 History of Present Illness: 68-year-old man who presents emergency room after having an episode of what sounds like rigors. Hands and arms were shaking. This lasted for several minutes. 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 It has since resolved. He said he felt short of breath at the time as well. Now he feels better. He says he is had some tick bites recently. He also has had a scratch on his hand and is starting to get some redness. Related Data Home Medications Medication Instructions Recorded Confirmed apixaban 5 mg tablet (Eliquis) 5 mg PO BID 09/09/19 12/14/23 sildenafil 100 mg tablet (Viagra) 100 mg PO DAILY PRN Sexual Activity 09/09/19 12/14/23 losartan 50 mg tablet 50 mg PO DAILY 07/13/20 12/14/23 rosuvastatin 20 mg tablet 20 mg PO DAILY 11/06/23 12/14/23 Previous Rx's Medication Instructions Recorded docusate sodium 100 mg capsule 100 mg PO BID #14 caps 11/14/23 (Colace) hydrocodone 7.5 mg-acetaminophen 1 tab PO Q6H PRN pain #20 tabs 11/14/23 325 mg tablet doxycycline hyclate 100 mg capsule 100 mg PO BID 10 days #20 caps 03/13/24 Allergies Allergy/AdvReac Type Severity Reaction Status Date / Time Penicillins Allergy ALGY-Hives Verified 12/14/23 14:43 atorvastatin [From Lipitor] AdvReac ADR-Muscle Verified 12/14/23 14:43 Pain Review of Systems Narrative: Constitutional symptoms: Negative except as documented in HPI. Skin symptoms: Negative except as documented in HPI. Eye symptoms: Negative except as documented in HPI. ENMT symptoms: Negative except as documented in HPI. Respiratory symptoms: Negative except as documented in HPI. Cardiovascular symptoms: Negative except as documented in HPI. Gastrointestinal symptoms: Negative except as documented in HPI. Genitourinary symptoms: Negative except as documented in HPI. Musculoskeletal symptoms: Negative except as documented in HPI. Neurologic symptoms: Negative except as documented in HPI. Psychiatric symptoms: Negative except as documented in HPI. Endocrine symptoms: Negative except as documented in HPI. [facility] PFS: Medical History (Updated 03/13/24 @ 12:47 by Olive Bliss MD) Hyperlipidemia BPH (benign prostatic hyperplasia) DVT (deep venous thrombosis) Sleep apnea Osteoarthrosis Hypertension Erectile dysfunction Surgical History Hx of melanoma excision Wide local excision of malignant melanoma left leg -Dr Velasquez Status post colonoscopy 09/26/19: sigmoid diverticulosis History of knee replacement Family History Denies family history of Anesthesia complication Bleeding disorder Social History Smoking and tobacco/nicotine status: unknown if used tobacco/nicotine Alcohol intake: current Alcohol intake frequency: 0-2 Drinks per Day Alcohol type: wine Substance/Drug Use: never Marital status: Current occupational status: employed Physical Exam Narrative: EXAM NARRATIVE: General: Alert, no acute distress. Skin: Warm, dry. Head: Normocephalic, atraumatic. Neck: Supple, trachea midline. Eye: Extraocular movements are intact. Ears, nose, mouth and throat: mucosa moist. Cardiovascular: Regular, Normal peripheral perfusion. Respiratory: Lungs are clear to auscultation, respirations are non-labored, breath sounds are equal, Symmetrical chest wall expansion. Gastrointestinal: Soft, Nontender, Non distended Musculoskeletal: Normal ROM, no deformity. Neurological: Alert and oriented, No focal neurological deficit observed. Psychiatric: Cooperative, appropriate mood & affect. Course Vital Signs: Vital signs: Vital Signs Temperature 98.7 F 03/13/24 10:46 Pulse Rate 70 03/13/24 10:46 Respiratory Rate 20 H 03/13/24 10:46 Blood Pressure 144/81 03/13/24 10:46 Pulse Oximetry 96 03/13/24 10:46 [facility] - General Adult Medical Decision Making Lab Review: Laboratory results were reviewed and interpreted by myself the emergency room physician. Lab work is fairly unremarkable. White count is a little bit low and his platelets are little bit low so this could indicate a possible tickborne illness. He also has a scratch on his hands undertreat both with doxycycline. Chest x-ray: No acute process. No infiltrate. No pneumothorax. This was reviewed and interpreted by myself the ER physician. I reviewed the patient's medical record. Reexamination: Patient remained stable. No increased work of breathing. No altered mental status. No focal motor deficits. Assessment and plan: Rigors Cat scratch Tick bite - Discharged home - Discussed plan with patient. Answered any questions. - Evaluation and treatment of this problem were appropriate in the emergency setting. Lab Data 03/13/24 11:09 03/13/24 11:09 Radiology Impressions Chest X-Ray 03/13/24 10:33 IMPRESSION: No acute findings. Laboratory Results WBC 4.84 10^3/uL (3.29-11.43) 03/13/24 11:09 RBC 4.25 10^6/uL (3.85-5.65) 03/13/24 11:09 Hgb 13.10 g/dL (11.27-16.99) 03/13/24 11:09 Hct 40.3 % (37-53) 03/13/24 11:09 MCV 94.8 fl (82-101) 03/13/24 11:09 MCH 30.8 pg (27-33) 03/13/24 11:09 MCHC 32.5 g/dL (30-55) 03/13/24 11:09 RDW 13.0 % (12.1-15.1) 03/13/24 11:09 Plt Count 164 10^3/cmm (157-399) 03/13/24 11:09 MPV 10.7 fL (7.4-10.4) H 03/13/24 11:09 Neut % (Auto) 89.3 % 03/13/24 11:09 Lymph % (Auto) 7.2 % 03/13/24 11:09 [place] % (Auto) 0.4 % 03/13/24 11:09 Eos % (Auto) 2.5 % 03/13/24 11:09 Baso % (Auto) 0.4 % 03/13/24 11:09 Neut # (Auto) 4.32 10^3/uL (1.8-7.7) 03/13/24 11:09 Lymph # (Auto) 0.4 10^3/uL (0.8-4.8) L 03/13/24 11:09 [place] # (Auto) 0.0 10^3/uL (0.2-0.9) L 03/13/24 11:09 Eos # (Auto) 0.1 10^3/uL (0.0-0.8) 03/13/24 11:09 Baso # (Auto) 0.0 10^3/uL (0.0-0.1) 03/13/24 11:09 Nucleated RBC % (auto) 0 % 03/13/24 11:09 Nucleated RBCs # 0.0 /100WBC 03/13/24 11:09 Sodium 139 mmol/L (136-145) 03/13/24 11:09 Potassium 4.2 mmol/L (3.5-5.1) 03/13/24 11:09 Chloride 103 mmol/L (98-107) 03/13/24 11:09 Carbon Dioxide 23 mmol/L (22-29) 03/13/24 11:09 Anion Gap 17.2 (5-19) 03/13/24 11:09 BUN 24 mg/dL (8-23) H 03/13/24 11:09 Creatinine 0.9 mg/dL (0.7-1.2) 03/13/24 11:09 GFR Calculation 83.9 mL/min (90-130) L 03/13/24 11:09 Glucose 88 mg/dL (65-115) 03/13/24 11:09 Calculated Osmolality 291 mOsm/kg (285-295) 03/13/24 11:09 Lactic Acid 2.9 mmol/L (0.5-2.2) H 03/13/24 11:09 Calcium 9.0 mg/dL (8.5-10.5) 03/13/24 11:09 Total Bilirubin 0.8 mg/dL (0.15-1.2) 03/13/24 11:09 AST 25 U/L (0-40) 03/13/24 11:09 ALT 26 U/L (0-41) 03/13/24 11:09 Alkaline Phosphatase 76 U/L (40-130) 03/13/24 11:09 C-Reactive Protein 7.0 mg/L (0.0-4.9) H 03/13/24 11:09 NT-Pro-B Natriuret Pep 118 pg/mL (0-125) 03/13/24 11:09 Total Protein 6.2 g/dL (6.6-8.7) L 03/13/24 11:09 Albumin 4.0 g/dL (3.5-5.2) 03/13/24 11:09 Globulin 2.2 g/dL (1.3-4.6) 03/13/24 11:09 Lipase 23 U/L (13-60) 03/13/24 11:09 All radiology interpretation(s) finalized by discharge Discharge Plan Discharge Patient Disposition: Home Clinical Impression: Rigors Condition: Stable Prescriptions: New doxycycline hyclate 100 mg capsule 100 mg PO BID 10 Days Qty: 20 0RF No Action losartan 50 mg tablet 50 mg PO DAILY sildenafil [Viagra] 100 mg tablet 100 mg PO DAILY PRN (Reason: Sexual Activity) Eliquis 5 mg tablet 5 mg PO BID Hold Instructions: Resume on 11/16/23. rosuvastatin 20 mg tablet 20 mg PO DAILY hydrocodone-acetaminophen 7.5-325 mg tablet 1 tab PO Q6H PRN (Reason: pain) Qty: 20 0RF Colace 100 mg capsule 100 mg PO BID Qty: 14 0RF Discharge Orders: Discharge ED (Routine); Ordered 03/13/24 Ordered By: Olive Bliss Referrals: Rio Al MD [Primary Care Provider] - Discharge Diet: Usual diet Discharge Activity: Increase activity as tolerated Patient Instructions: Tick Bite (ED) Activity Restrictions/Additional Instructions: Thank you for choosing [facility] for your healthcare needs today. Please realize this is an emergency room and that we are providing you with a medical screening exam and this may not be complete and all inclusive of all the testing and or work up that you may need to determine your ailment or severity of your illness. You have been screened and evaluated and felt safe for discharge. Health conditions do change or evolve sometimes and as such it is important that you follow up with your Primary Doctor to be re checked, 3-5 days is a general good time frame for follow up. You are always welcome to return to the ED for re assessment if your symptoms are worsening or you have new concerns Coding Level of Care Code ED Disease Intervention Specialist for [facility]
[2024-03-13 11:46] LABS: Lactic Sepsis W/Reflex 2.9 mmol/L (0.5-2.2)
[2024-03-13 11:54] LABS: Alanine Aminotransferase 26 U/L (0-41); Alkaline Phosphatase 76 U/L (40-130); Anion Gap 17.2 (5-19); Aspartate Amino Transferase 25 U/L (0-40); Blood Urea Nitrogen 24 mg/dL (8-23); Carbon Dioxide 23 mmol/L (22-29); Chloride 103 mmol/L (98-107); Creatinine Clr Calc Pharmacy 103.0978; Globulin 2.2 g/dL (1.3-4.6); Glomerular Filtration Rate 83.9 mL/min (90-130); Glucose 88 mg/dL (65-115); Lipase 23 U/L (13-60); NT Pro B Type Natriuretic Pept 118 pg/mL (0-125); Osmolality Calculated 291 mOsm/kg (285-295); Potassium 4.2 mmol/L (3.5-5.1); Sodium 139 mmol/L (136-145); Total Bilirubin 0.8 mg/dL (0.15-1.2); Total Protein 6.2 g/dL (6.6-8.7)
[2024-03-13 12:02] LABS: Slide Review Slide Review Perform
[2024-03-13 13:08] LABS: Reflex Lactate Order REFLEX LACTIC ORDERD
[2024-03-13 13:12] VITALS: BP 148/72; PULSE 87; RESP 18; O2SAT 96
== END 2024-03-13 13:13 | disposition home or self-care (01) ==
PROVIDERS: Emergency Medicine; Emergency Provider Emergency Medicine; PCP Family Medicine
DX: R68.89 Other general symptoms and signs (principal); Z79.01 Long term (current) use of anticoagulants; E78.5 Hyperlipidemia, unspecified; I10 Essential (primary) hypertension
CPT/HCPCS: 36415; 71045; 80053; 83605; 83690; 83880; 85025; 86140; 87040; 93005; 99285

== ENCOUNTER 2024-04-11 14:24 | Outpatient (CLI) | payer MEDICARE, SELFPAY ==
[2024-04-11 19:19] LABS: Adenovirus Not Detected (NOT DETECT); Chlamydia Pneumoniae Not Detected (NOT DETECT); Coronavirus 229E,HKU1,NL63,OC4 Not Detected (NOT DETECT); Human Metapneumovirus Not Detected (NOT DETECT); Human Rhinovirus/Enterovirus Not Detected (NOT DETECT); Influenza A Not Detected (NOT DETECT); Influenza A H1 Not Detected (NOT DETECT); Influenza A H1-2009 Not Detected (NOT DETECT); Influenza A H3 Not Detected (NOT DETECT); Influenza B Not Detected (NOT DETECT); Mycoplasma Pneumoniae Not Detected (NOT DETECT); Parainfluenza Virus Type 1 Not Detected (NOT DETECT); Parainfluenza Virus Type 2 Not Detected (NOT DETECT); Parainfluenza Virus Type 3 Not Detected (NOT DETECT); Parainfluenza Virus Type 4 Not Detected (NOT DETECT); Respiratory Syncytial Virus A Not Detected (NOT DETECT); Respiratory Syncytial Virus B Not Detected (NOT DETECT); SARS-COV-2 Not Detected (NOT DETECT)
== END 2024-04-11 14:25 | disposition home or self-care (01) ==
LOC: LAB 14:26
PROVIDERS: PCP Family Medicine; Visit Provider Family Medicine
DX: R50.9 Fever, unspecified (principal)
CPT/HCPCS: 87486; 87581; 87633

== ENCOUNTER → 2024-04-18 10:21 | Outpatient (BNVA) | payer MEDICARE, SELFPAY | PROVIDERS: PCP Family Medicine; Visit Provider Nurse Practitioner Family | DX: L82.1 Other seborrheic keratosis (principal); D69.2 Other nonthrombocytopenic purpura; L82.0 Inflamed seborrheic keratosis; R51.9 Headache, unspecified; L57.8 Other skin changes due to chronic exposure to nonionizing radiation | CPT/HCPCS: 17110; 99213 ==

== ENCOUNTER 2024-05-29 13:07 | Oncology outpatient (recurring) (ONCR) | payer MEDICARE, SELFPAY ==
[2024-05-29 13:37] LABS: Basophils # 0.1 10^3/uL (0.0-0.1); Basophils % 0.7 %; Eosinophils # 0.3 10^3/uL (0.0-0.8); Eosinophils % 4.5 %; Hematocrit 42.2 % (37-53); Lymphocytes # 1.7 10^3/uL (0.8-4.8); Mean Corpuscular HGB Conc 32.9 g/dL (30-55); Mean Corpuscular Hemoglobin 29.3 pg (27-33); Mean Corpuscular Volume 88.8 fl (82-101); Mean Platelet Volume 10.1 fL (7.4-10.4); Monocytes # 0.6 10^3/uL (0.2-0.9); Monocytes % 8.9 %; Neutrophils # 4.28 10^3/uL (1.8-7.7); Neutrophils % 61.6 %; Nucleated Red Blood Cells % 0 %; Platelet Count 237 10^3/cmm (157-399); Red Blood Count 4.75 10^6/uL (3.85-5.65); Red Cell Distribution Width 12.6 % (12.1-15.1); White Blood Count 6.95 10^3/uL (3.29-11.43)
[2024-05-29 14:34] LABS: Alanine Aminotransferase 18 U/L (0-41); Albumin Level 4.4 g/dL (3.5-5.2); Alkaline Phosphatase 79 U/L (40-130); Anion Gap 13.7 (5-19); Aspartate Amino Transferase 19 U/L (0-40); Blood Urea Nitrogen 19 mg/dL (8-23); Calcium 9.2 mg/dL (8.5-10.5); Carbon Dioxide 28 mmol/L (22-29); Chloride 101 mmol/L (98-107); Creatinine Clr Calc Pharmacy 80.5589; Globulin 1.6 g/dL (1.3-4.6); Glomerular Filtration Rate 66.6 mL/min (90-130); Glucose 111 mg/dL (65-115); Osmolality Calculated 291 mOsm/kg (285-295); Potassium 3.7 mmol/L (3.5-5.1); Sodium 139 mmol/L (136-145); Total Bilirubin 0.5 mg/dL (0.15-1.2)
== END 2024-06-22 23:59 | disposition home or self-care (01) ==
PROVIDERS: Nurse Practitioner Family; PCP Family Medicine; Visit Provider Internal Medicine Hematology & Oncology
DX: Z98.890 Other specified postprocedural states (principal); Z85.820 Personal history of malignant melanoma of skin; Z86.718 Personal history of other venous thrombosis and embolism; Z79.01 Long term (current) use of anticoagulants; I10 Essential (primary) hypertension
CPT/HCPCS: 36415; 80053; 85025; 99214

== ENCOUNTER 2024-06-22 17:19 | Emergency (ER) | payer MEDICARE, SELFPAY ==
[2024-06-22 17:38] VITALS: BP 143/77; PULSE 58; RESP 16; TEMP 36.8; O2SAT 93; BMI 35.6
--- NOTE | 2024-06-22 18:27 | XRR_ITS ---
PROCEDURE INFORMATION: Exam: XR Left Ribs with PA Chest Exam date and time: 06/22/2024 6:50 PM Age: 68 years old Clinical indication: Chest wall pain; Left; Patient HX: Lt lateral rib pain after fall/blunt trauma TECHNIQUE: Imaging protocol: Radiologic exam of the left ribs with PA chest. Views: 3 views COMPARISON: CR XR chest 2V* [id number] 04/11/2024 2:00 PM FINDINGS: Lungs: Mild left basilar atelectasis and/or infiltrate and/or effusion and/or pulmonary contusion. Pleural spaces: Unremarkable. No pleural effusion. No pneumothorax. Heart/Mediastinum: Unremarkable. No cardiomegaly. Bones/joints: Left posterolateral 7th rib fracture. XR/XR ribs LT mn 3V w CXR1V [id number] IMPRESSION: 1. Mild left basilar atelectasis and/or infiltrate and/or effusion and/or pulmonary contusion. 2. Left posterolateral 7th rib fracture.
--- NOTE | 2024-06-22 18:40 | ED_ITS ---
HPI - General Adult General: Chief complaint: General Medical Stated complaint: fell, pain in ribs Time Seen by Provider: 06/22/24 18:27 History of Present Illness: Patient reports to the ER with complaining of left lateral rib pain. He said he fell today at approximate 11:00 and landed on a rock has been having increasing pain and shortness of breath ever since then. Patient is on Eliquis. Patient has tried ice and Tylenol and it still hurts. Patient is in no acute distress and nontoxic in appearance. Related Data Home Medications Medication Instructions Recorded Confirmed apixaban 5 mg tablet (Eliquis) 5 mg PO BID 09/09/19 05/29/24 sildenafil 100 mg tablet (Viagra) 100 mg PO DAILY PRN Sexual Activity 09/09/19 05/29/24 losartan 50 mg tablet 50 mg PO DAILY 07/13/20 05/29/24 rosuvastatin 20 mg tablet 20 mg PO DAILY 11/06/23 05/29/24 Previous Rx's Medication Instructions Recorded docusate sodium 100 mg capsule 100 mg PO BID #14 caps 11/14/23 (Colace) hydrocodone 7.5 mg-acetaminophen 1 tab PO Q6H PRN pain #20 tabs 11/14/23 325 mg tablet Allergies Allergy/AdvReac Type Severity Reaction Status Date / Time Penicillins Allergy ALGY-Hives Verified 06/22/24 17:42 atorvastatin [From Lipitor] AdvReac ADR-Muscle Verified 06/22/24 17:42 Pain Review of Systems General: Reports: 10 or more systems reviewed and unremarkable except in HPI and below PFSH ED PFSH: Medical History Hyperlipidemia BPH (benign prostatic hyperplasia) DVT (deep venous thrombosis) Sleep apnea Osteoarthrosis Hypertension Erectile dysfunction Surgical History Hx of melanoma excision Wide local excision of malignant melanoma left leg -Dr Velasquez Status post colonoscopy 09/26/19: sigmoid diverticulosis History of knee replacement Family History Denies family history of Anesthesia complication Bleeding disorder Social History Smoking and tobacco/nicotine status: unknown if used tobacco/nicotine Alcohol intake: current Alcohol intake frequency: 0-2 Drinks per Day Alcohol type: wine Substance/Drug Use: never Marital status: Current occupational status: employed Physical Exam Const: COMMON NORMALS: no acute distress, average body habitus, patient oriented x3, no limitations, healthy appearing, alert and well nourished HENMT: COMMON NORMALS: normocephalic, atraumatic, hearing grossly normal bilaterally, external ears normal, Normal external nose present and moist oral mucous membranes HEAD & SCALP: normocephalic and atraumatic NOSE: Normal external nose present EXTERNAL EAR: Yes external ears normal Neck/C-Spine: COMMON NORMALS: full ROM, no lymphadenopathy, supple, no meningeal signs, no JVD and Thyroid normal THYROID: Thyroid normal Chest: COMMONS NORMALS: normal inspection of the chest; negative for normal palpation of entire chest wall (Left lateral rib pain approximately ribs 6 and 7) Resp: COMMON NORMALS: normal respiratory effort, No retractions, No use of accessory muscles and clear to auscultation bilaterally AUSCULTATION: clear to auscultation bilaterally Cardio: COMMON NORMALS: no JVD, regular rate, regular rhythm, S1 normal heart sound present, S2 normal heart sound present, No gallops present (Cardio), No clicks present (Cardio), No murmurs present (Cardio) and No rub (Cardio) RATE: regular rate RHYTHM: regular rhythm HEART SOUNDS: S1 normal heart sound present and S2 normal heart sound present GI: COMMON NORMALS: Normal to inspection, nondistended, normoactive bowel sounds present, Soft to palpation, non-tender, No hepatosplenomegaly present and no masses PALPATION: Yes Soft to palpation and Yes No hepatosplenomegaly present Neuro: COMMON NORMALS: patient oriented x3 SENSORIUM/ORIENTATION: Yes alert MENINGEAL SIGNS: Yes no meningeal signs Course Vital Signs: Vital signs: Vital Signs Temperature 98.2 F 06/22/24 17:38 Pulse Rate 58 L 06/22/24 17:38 Respiratory Rate 16 06/22/24 17:38 Blood Pressure 143/77 06/22/24 17:38 Pulse Oximetry 93 06/22/24 17:38 Oxygen Delivery Me thod Room Air 06/22/24 17:38 MDM - General Adult Medical Decision Making X-ray showed left seventh rib fracture, will give the patient 2 [place] to go home he thinks he has a prescription there at home from a previous surgery. Medical Records I reviewed the patient's medical records. Lab Data I reviewed the patient's lab results. Radiology Impressions Ribs X-Ray 06/22/24 18:27 IMPRESSION: 1. Mild left basilar atelectasis and/or infiltrate and/or effusion and/or pulmonary contusion. 2. Left posterolateral 7th rib fracture. All radiology interpretation(s) finalized by discharge Discharge Plan Discharge Patient Disposition: Home Clinical Impression: Closed rib fracture Qualifiers: Encounter type: initial encounter Rib fracture type: single rib Laterality: left Qualified Code(s): S22.32XA - Fracture of one rib, left side, initial encounter for closed fracture Condition: Stable Prescriptions: No Action losartan 50 mg tablet 50 mg PO DAILY sildenafil [Viagra] 100 mg tablet 100 mg PO DAILY PRN (Reason: Sexual Activity) Eliquis 5 mg tablet 5 mg PO BID Hold Instructions: Resume on 11/16/23. rosuvastatin 20 mg tablet 20 mg PO DAILY hydrocodone-acetaminophen 7.5-325 mg tablet 1 tab PO Q6H PRN (Reason: pain) Qty: 20 0RF Colace 100 mg capsule 100 mg PO BID Qty: 14 0RF Discharge Orders: Discharge ED (Routine); Ordered 06/22/24 Ordered By: Chino Solano Referrals: Rio Al MD [Primary Care Provider] - 1 week Patient Instructions: Opioid Safety, Pain Management, Rib Fracture (ED) Activity Restrictions/Additional Instructions: Thank you for choosing [facility] for your healthcare needs today. Please realize that you were seen in the emergency department and that we are providing you with an emergency medical screening exam and this may not be a complete and all exclusive of all testing and/or medical workup we may need to determine your element or severity of your illness. It is very important that you follow-up as instructed with your primary care provider or specialist for the additional evaluation and to discuss your medical treatment plan. You may return to the emergency department should you have concerns or if your condition changes or worsens in any way. Coding Level of Care Code ED [employer] for [employer]
[2024-06-22 20:02] VITALS: BP 119/75; PULSE 64; RESP 16; O2SAT 93
== END 2024-06-22 20:06 | disposition home or self-care (01) ==
PROVIDERS: Emergency Provider Emergency Medicine; PCP Family Medicine
DX: S22.32XA Fracture of one rib, left side, initial encounter for closed fracture (principal); Z79.01 Long term (current) use of anticoagulants; E78.5 Hyperlipidemia, unspecified; I10 Essential (primary) hypertension; W19.XXXA Unspecified fall, initial encounter
CPT/HCPCS: 71101; 99283

== ENCOUNTER → 2024-07-01 13:54 | Outpatient (BNVA) | payer MEDICARE, SELFPAY | PROVIDERS: PCP Family Medicine; Visit Provider Nurse Practitioner Family | DX: L82.1 Other seborrheic keratosis (principal); L57.8 Other skin changes due to chronic exposure to nonionizing radiation; D22.5 Melanocytic nevi of trunk; L81.4 Other melanin hyperpigmentation; Z08 Encounter for follow-up examination after completed treatment for malignant neoplasm; Z85.820 Personal history of malignant melanoma of skin; L82.0 Inflamed seborrheic keratosis; L53.8 Other specified erythematous conditions; L29.89 Other pruritus | CPT/HCPCS: 17110; 99213 ==

== ENCOUNTER 2024-09-16 06:54 | Outpatient (RCR) | payer MEDICARE, SELFPAY | END 2024-09-20 23:59 | disposition home or self-care (01) | LOC: SPT 06:54 | PROVIDERS: Visit Provider Family Medicine | DX: M25.552 Pain in left hip (principal) | CPT/HCPCS: 97110; 97161 ==

== ENCOUNTER 2024-09-21 06:00 | Outpatient (RCR) | payer MEDICARE, SELFPAY | END 2024-10-21 23:59 | disposition home or self-care (01) | LOC: SPT 06:00 | PROVIDERS: Visit Provider Family Medicine | DX: M25.552 Pain in left hip (principal) | CPT/HCPCS: 97110 ==

== ENCOUNTER → 2024-10-14 14:46 | Outpatient (BNVA) | payer MEDICARE, SELFPAY | PROVIDERS: Visit Provider Nurse Practitioner Family | DX: L82.1 Other seborrheic keratosis (principal); D22.5 Melanocytic nevi of trunk; L57.8 Other skin changes due to chronic exposure to nonionizing radiation; L81.4 Other melanin hyperpigmentation; Z08 Encounter for follow-up examination after completed treatment for malignant neoplasm; Z85.820 Personal history of malignant melanoma of skin; L57.0 Actinic keratosis | CPT/HCPCS: 17000; 99213 ==

== ENCOUNTER 2024-10-22 06:00 | Outpatient (RCR) | payer MEDICARE, SELFPAY | END 2024-10-24 08:35 | disposition home or self-care (01) | LOC: SPT 06:00 | PROVIDERS: Visit Provider Family Medicine | DX: M25.552 Pain in left hip (principal) | CPT/HCPCS: 97110 ==

== ENCOUNTER 2024-12-04 09:59 | Oncology outpatient (recurring) (ONCR) | payer MEDICARE, SELFPAY ==
[2024-12-04 10:33] LABS: Basophils % 0.5 %; Eosinophils # 0.2 10^3/uL (0.0-0.8); Eosinophils % 1.9 %; Hematocrit 45.4 % (37-53); Lymphocytes # 1.4 10^3/uL (0.8-4.8); Lymphocytes % 17.6 %; Mean Corpuscular HGB Conc 32.6 g/dL (30-55); Mean Corpuscular Hemoglobin 29.2 pg (27-33); Mean Corpuscular Volume 89.5 fl (82-101); Mean Platelet Volume 10.3 fL (7.4-10.4); Monocytes # 0.6 10^3/uL (0.2-0.9); Monocytes % 6.9 %; Neutrophils # 5.82 10^3/uL (1.8-7.7); Neutrophils % 72.8 %; Nucleated Red Blood Cells % 0 %; Platelet Count 245 10^3/cmm (157-399); Red Blood Count 5.07 10^6/uL (3.85-5.65); Red Cell Distribution Width 13.2 % (12.1-15.1); White Blood Count 7.99 10^3/uL (3.29-11.43)
[2024-12-04 10:56] LABS: Alanine Aminotransferase 21 U/L (0-41); Albumin Level 4.1 g/dL (3.5-5.2); Alkaline Phosphatase 95 U/L (40-130); Anion Gap 17.1 (5-19); Aspartate Amino Transferase 26 U/L (0-40); Blood Urea Nitrogen 17 mg/dL (8-23); Calcium 9.3 mg/dL (8.5-10.5); Carbon Dioxide 24 mmol/L (22-29); Chloride 103 mmol/L (98-107); Creatinine Clr Calc Pharmacy 87.1348; Globulin 2.7 g/dL (1.3-4.6); Glomerular Filtration Rate 74.1 mL/min (90-130); Glucose 128 mg/dL (65-115); Osmolality Calculated 293 mOsm/kg (285-295); Potassium 4.1 mmol/L (3.5-5.1); Sodium 140 mmol/L (136-145); Total Bilirubin 0.5 mg/dL (0.15-1.2); Total Protein 6.8 g/dL (6.6-8.7)
== END 2024-12-21 23:59 | disposition home or self-care (01) ==
PROVIDERS: Nurse Practitioner Family; PCP Family Medicine; Visit Provider Internal Medicine Medical Oncology
DX: Z08 Encounter for follow-up examination after completed treatment for malignant neoplasm (principal); Z85.820 Personal history of malignant melanoma of skin; Z86.718 Personal history of other venous thrombosis and embolism; Z98.890 Other specified postprocedural states; Z79.01 Long term (current) use of anticoagulants; I10 Essential (primary) hypertension; R00.1 Bradycardia, unspecified; L98.8 Other specified disorders of the skin and subcutaneous tissue
CPT/HCPCS: 36415; 80053; 85025; 99214

== ENCOUNTER → 2024-12-23 13:47 | Outpatient (BNVA) | payer MEDICARE, SELFPAY | PROVIDERS: PCP Family Medicine; Visit Provider Nurse Practitioner Family | DX: L57.8 Other skin changes due to chronic exposure to nonionizing radiation (principal); L81.4 Other melanin hyperpigmentation; L82.1 Other seborrheic keratosis; D18.01 Hemangioma of skin and subcutaneous tissue; Z08 Encounter for follow-up examination after completed treatment for malignant neoplasm; Z85.820 Personal history of malignant melanoma of skin; D48.5 Neoplasm of uncertain behavior of skin | CPT/HCPCS: 11102; 99213 ==

== ENCOUNTER 2025-01-01 20:00 | Outpatient (CLI) | payer MEDICARE, SELFPAY | END 2025-01-01 20:01 | disposition home or self-care (01) | LOC: SLEEP 01-02 01:33 | PROVIDERS: PCP Family Medicine; Visit Provider Internal Medicine Pulmonary Disease | DX: G47.33 Obstructive sleep apnea (adult) (pediatric) (principal) | CPT/HCPCS: 95811; 97110 ==

== ENCOUNTER 2025-01-06 14:22 | Outpatient (RCR) | payer MEDICARE, SELFPAY | END 2025-01-20 23:59 | disposition home or self-care (01) | LOC: SPT 14:22 | PROVIDERS: PCP Family Medicine; Visit Provider Family Medicine | DX: M54.2 Cervicalgia (principal) | CPT/HCPCS: 97110; 97140; 97161 ==

== ENCOUNTER 2025-01-21 05:00 | Outpatient (RCR) | payer MEDICARE, SELFPAY | END 2025-02-20 23:59 | disposition home or self-care (01) | LOC: SPT 05:00 | PROVIDERS: PCP Family Medicine; Visit Provider Family Medicine | DX: M54.2 Cervicalgia (principal) | CPT/HCPCS: 97110; 97140 ==

== ENCOUNTER 2025-02-21 06:30 | Outpatient (RCR) | payer MEDICARE, SELFPAY | END 2025-02-25 13:59 | disposition home or self-care (01) | LOC: SPT 06:30 | PROVIDERS: PCP Family Medicine; Visit Provider Family Medicine | DX: M54.2 Cervicalgia (principal) | CPT/HCPCS: 97110; 97140 ==

== ENCOUNTER → 2025-04-30 09:42 | Outpatient (BNVA) | payer MEDICARE, SELFPAY | PROVIDERS: PCP Family Medicine; Visit Provider Nurse Practitioner Family | DX: L57.8 Other skin changes due to chronic exposure to nonionizing radiation (principal); L81.4 Other melanin hyperpigmentation; D18.01 Hemangioma of skin and subcutaneous tissue; Z08 Encounter for follow-up examination after completed treatment for malignant neoplasm; Z85.820 Personal history of malignant melanoma of skin | CPT/HCPCS: 99213 ==

== ENCOUNTER 2025-05-29 12:35 | Oncology outpatient (recurring) (ONCR) | payer MEDICARE, SELFPAY ==
[2025-05-29 12:55] LABS: Hematocrit 42.9 % (37-53); Hemoglobin 14.20 g/dL (11.27-16.99); Mean Corpuscular HGB Conc 33.1 g/dL (30-55); Mean Corpuscular Hemoglobin 30.0 pg (27-33); Mean Corpuscular Volume 90.7 fl (82-101); Nucleated Red Blood Cells % 0 %; Platelet Count 228 10^3/cmm (157-399); Red Blood Count 4.73 10^6/uL (3.85-5.65); White Blood Count 6.65 10^3/uL (3.29-11.43)
[2025-05-29 13:20] LABS: Alanine Aminotransferase 21 U/L (0-41); Albumin Level 4.4 g/dL (3.5-5.2); Alkaline Phosphatase 81 U/L (40-130); Anion Gap 13.5 (5-19); Aspartate Amino Transferase 21 U/L (0-40); Blood Urea Nitrogen 22 mg/dL (8-23); Calcium 9.6 mg/dL (8.5-10.5); Carbon Dioxide 27 mmol/L (22-29); Chloride 101 mmol/L (98-107); Globulin 2.4 g/dL (1.3-4.6); Glucose 94 mg/dL (65-115); Osmolality Calculated 287 mOsm/kg (285-295); Potassium 4.5 mmol/L (3.5-5.1); Sodium 137 mmol/L (136-145); Total Protein 6.8 g/dL (6.6-8.7)
== END 2025-06-22 23:59 | disposition home or self-care (01) ==
PROVIDERS: Nurse Practitioner Family; PCP Family Medicine; Visit Provider Internal Medicine Medical Oncology
DX: Z08 Encounter for follow-up examination after completed treatment for malignant neoplasm (principal); I10 Essential (primary) hypertension; R00.1 Bradycardia, unspecified; Z85.820 Personal history of malignant melanoma of skin; Z98.890 Other specified postprocedural states; Z79.01 Long term (current) use of anticoagulants; Z79.899 Other long term (current) drug therapy; Z86.718 Personal history of other venous thrombosis and embolism
CPT/HCPCS: 36415; 80053; 85025; 99213